=== PATIENT | female | born 1950 ===

== ENCOUNTER 2018-09-05 09:16 | Emergency (ER) | payer OTHER ==
[~2018-09-05] VITALS: Ht 162.6 cm; Wt 77.1 kg
[~2018-09-05 09:16] MED LIST: GLUCOSAMINE CHO1 CA2 PO
== END 2018-09-05 17:08 | disposition home or self-care (01) ==
LOC: ER 09:16
DX: K29.70 Gastritis, unspecified, without bleeding (principal); K59.09 Other constipation